=== PATIENT | male | born 1945 | race Caucasian/White ===

== ENCOUNTER → 2020-03-17 | Outpatient (CLI) | payer OTHER ==
[~2020-03-17] VITALS: Ht 182.9 cm; Wt 71.7 kg
[~2020-03-17] MED LIST: AMIODARONE HCL100 MG PO; CALCIUM + D3 E1 EACH PO; LIPITOR40 MG PO; LISINOPRIL10 MG PO; MAGNESIUM250 M1 PO; MELOXICAM7.5 MG PO; POTASSIUM20 PO
--- NOTE | ~2020-03-17 | HPC ---
[facility] [address] [place] [address] PAIN MANAGEMENT CONSULTATION Name: DALY CHAN Room #: [facility].#: [id number] Admission: 03/17/20 Attend Phys: Bran Prater MD Discharge: Date of : 47 Report #: [id number] CC: Danilo Prater DATE OF SERVICE: 03/17/2020 CHIEF COMPLAINT: Lumbosacral pain. There is some radiation into the mid back and increasing lumbar pain with prolonged standing. I am seeing the patient. Dr. 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 Chan. He has back pain that has been progressively worsening over the last 3 months. He began experiencing some symptoms in the fall. During the inactive winter months, he was a bit better. He was also undergoing some treatments for atrial fibrillation and had an ablation at [facility]. He is now off of all blood thinners and doing well. As he began becoming more active in spring, doing outdoor activities, he started to have pain. He was able to move fine, doing some yard work and other general activities, but when he sat down, the pain would become severe. Prolonged sitting dramatically increased pain to the level of 8-9/10 and he describes as a constant, shooting, gnawing, aching sensation. Occasionally, there is some radiation into the leg, but much of it radiates up the back and may be associated with muscle tension that develops as his back pain worsens. He ultimately underwent an MRI. It showed degenerative changes expected for age. Specifically, there was mild dextrocurvature of the lumbar spine. Minimal grade 1 retrolisthesis of L2 on L3 and a grade 1 anterolisthesis of L5 on S1 were noted. 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 No acute findings were found. No compression fracture or deformity and although there are degenerative changes at several of the disks, there was not a significant spinal narrowing or spinal stenosis at any level. The anterolisthesis at L5 on S1 did create moderate to severe neural foraminal narrowing bilaterally, right worse than left. Facet arthropathy consistent with age is noted also across the lumbosacral segment. CURRENT MEDICATIONS: Gabapentin, nitroglycerin, zolpidem, amiodarone, atorvastatin, lisinopril, potassium, meloxicam, magnesium and calcium carbonate. ALLERGIES: None. PAST MEDICAL HISTORY: Significant for atrial fibrillation, treated with ablation in the winter of 2018. He has some osteoarthritis. PAST SURGICAL HISTORY: Appendectomy, cholecystectomy and he had shoulder surgery. 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 He denies use of tobacco. Denies use of alcohol. Impacted pain score is really quite high, 52/70, suggests significant impacts, particularly in walking ability 10/10 and sleeps 6/10. General activity is 8/10. Pain interferes with many of his enjoyable activities. PHYSICAL EXAMINATION: GENERAL: He is a very slender, fit-appearing 74-year-old, 6 feet tall, 158 pounds, BMI is 21.4. VITAL SIGNS: Blood pressure 130/73, heart rate 87, respirations 20, O2 sat 98. CHEST: Clear to auscultation. CARDIAC: Rhythm regular. I could not appreciate a murmur. MUSCULOSKELETAL: Examination of the spine reveals what seems to be fairly normal alignment. There are no scars. Excellent range of motion in flexion, extension, [id number] rotation and lateral tilt without significant exacerbation of lumbosacral pain. There is some localized tenderness across the lumbosacral segment; however, at the level of L5-S1 in the midline. Straight leg raising is performed bilaterally in both sitting and supine position without exacerbation of pain. Strength is normal. Sensation is normal. Deep tendon reflexes are 1+ at knees and ankles. IMPRESSION: Lumbar spondylosis. He has some changes associated with the L5-S1 anterolisthesis. The radicular symptoms are mild. It would be difficult to focus on a single pain generator. I think an Epidural steroid injection would be an excellent initial treatment. We will see if this provides any significant lasting relief. Potential risks and benefits were reviewed in some detail and he would like to proceed. PROCEDURE: L4-L5 epidural under fluoroscopic guidance. PROCEDURE NOTE: After both written and informed consent to include risk of spinal cord damage, increased pain, weakness and dural puncture, the patient was taken to the fluoroscopy suite, placed in the prone position. After sterile prep and drape, a skin wheal with lidocaine was raised. A 22-gauge epidural Tuohy needle was inserted in the midline at L4-L5 with good loss to resistance. Negative aspiration for cerebrospinal fluid or blood was noted. Then 1 mL of Omnipaque under biplanar fluoroscopy showed good spread within the epidural space. This was followed with 80 mg of triamcinolone plus 1 mL of 1.5% preservative-free Xylocaine, 0.5 mL Xylocaine was then injected to flush the needle; it was removed. The patient was monitored for an appropriate period of time and discharged in good and stable condition. Followup visit planned in 1 month. No medications were ordered. By: [id number] Bran Prater MD /nt
[2020-03-17 12:49] VITALS: BP 130/73
--- NOTE | 2020-03-17 12:55 | NUR ---
Pain Clinic Assessment: 1. History of Osteoarthritis: BACK History of Rheumatoid Arthritis: 2. Height: 6 ft. in. 182.9 cm. Weight: 158.0 lb. oz. 71.668 kg. Patient's BMI: 21.4 3. Vital Signs: BP: 130/73 Pulse: 87 Resp: 20 Temp: 02 Sat: 98 ECG Mon: 4. Pain Intensity: 8-10 5. Fall Risk: Dizziness: N Needs help standing or walking: N Fallen in the last 3 months: N Fall risk comments: 6. Patient on Blood Thinner: None 7. History of Hypertension: Y 8. Opioid Therapy greater than 6 weeks: N Opiate Contract Signed: 9. Risk Assessment Tool Provided: 0-LOW RISK 10. Functional Assessment Tool: 11. Recreational Drug Use: Never Drug Type: Tobacco Use: Never Smoker Tobacco Type: Amount or Packs/day: How Many Years: Alcohol Use: No Frequency: Quant:
== END | disposition home or self-care (01) ==
LOC: PAIN 06:44
PROVIDERS: ATTEND Anesthesiology Pain Medicine
DX: M54.5 Low back pain (principal); M47.26 Other spondylosis with radiculopathy, lumbar region; M43.17 Spondylolisthesis, lumbosacral region; I48.91 Unspecified atrial fibrillation; M19.90 Unspecified osteoarthritis, unspecified site; Z98.890 Other specified postprocedural states; Z79.899 Other long term (current) drug therapy; Z90.49 Acquired absence of other specified parts of digestive tract; Z79.01 Long term (current) use of anticoagulants

== ENCOUNTER → 2020-04-07 | Outpatient (CLI) | payer OTHER ==
[~2020-04-07] VITALS: Ht 182.9 cm; Wt 71.7 kg
[~2020-04-07] MED LIST changes: +MYSOLINE50 MG PO
[2020-04-07 10:07] VITALS: BP 108/72
--- NOTE | 2020-04-07 10:23 | NUR ---
Pain Clinic Assessment: 1. History of Osteoarthritis: BACK History of Rheumatoid Arthritis: 2. Height: 6 ft. 0 in. 182.9 cm. Weight: 158.0 lb. oz. 71.668 kg. Patient's BMI: 21.4 3. Vital Signs: BP: 108/72 Pulse: 67 Resp: 14 Temp: 02 Sat: 100 ECG Mon: 4. Pain Intensity: 8 5. Fall Risk: Dizziness: N Needs help standing or walking: N Fallen in the last 3 months: N Fall risk comments: 6. Patient on Blood Thinner: None 7. History of Hypertension: Y 8. Opioid Therapy greater than 6 weeks: N Opiate Contract Signed: 9. Risk Assessment Tool Provided: 0-LOW RISK 10. Functional Assessment Tool: 11. Recreational Drug Use: Never Drug Type: Tobacco Use: Never Smoker Tobacco Type: Amount or Packs/day: How Many Years: Alcohol Use: No Frequency: Quant:
== END | disposition home or self-care (01) ==
LOC: PAIN 06:51
PROVIDERS: ATTEND Anesthesiology Pain Medicine
DX: M47.816 Spondylosis without myelopathy or radiculopathy, lumbar region (principal); I10 Essential (primary) hypertension; G89.29 Other chronic pain; Z98.890 Other specified postprocedural states; Z79.899 Other long term (current) drug therapy

== ENCOUNTER → 2020-05-05 | Outpatient (CLI) | payer OTHER ==
[~2020-05-05] VITALS: Ht 182.9 cm; Wt 70.4 kg
[~2020-05-05] MED LIST changes: +LEXAPRO 10 MG T10 M1 PO; +PAIN RELIEF325 MG PO
[2020-05-05 14:12] VITALS: BP 115/70
--- NOTE | 2020-05-05 14:31 | NUR ---
Pain Clinic Assessment: 1. History of Osteoarthritis: BACK History of Rheumatoid Arthritis: 2. Height: 6 ft. 0 in. 182.9 cm. Weight: 155.2 lb. oz. 70.398 kg. Patient's BMI: 21.0 3. Vital Signs: BP: 115/70 Pulse: 73 Resp: 16 Temp: 02 Sat: 97 ECG Mon: 4. Pain Intensity: 8 5. Fall Risk: Dizziness: N Needs help standing or walking: N Fallen in the last 3 months: N Fall risk comments: 6. Patient on Blood Thinner: None 7. History of Hypertension: Y 8. Opioid Therapy greater than 6 weeks: N Opiate Contract Signed: 9. Risk Assessment Tool Provided: 0-LOW RISK 10. Functional Assessment Tool: 11. Recreational Drug Use: Never Drug Type: Tobacco Use: Never Smoker Tobacco Type: Amount or Packs/day: How Many Years: Alcohol Use: No Frequency: Quant:
== END | disposition home or self-care (01) ==
LOC: PAIN 06:49
PROVIDERS: ATTEND Anesthesiology Pain Medicine
DX: M47.816 Spondylosis without myelopathy or radiculopathy, lumbar region (principal); M54.5 Low back pain; G89.29 Other chronic pain; I10 Essential (primary) hypertension; Z98.890 Other specified postprocedural states; Z79.899 Other long term (current) drug therapy; Z88.8 Allergy status to other drugs, medicaments and biological substances

== ENCOUNTER → 2020-05-16 | Outpatient (CLI) | payer OTHER ==
[~2020-05-16] VITALS: Ht 182.9 cm; Wt 71.9 kg
[~2020-05-16] MED LIST changes: +CHILDREN'S ASPI81 M1 PO
[2020-05-16 08:53] VITALS: BP 121/67
--- NOTE | 2020-05-16 09:01 | NUR ---
Pain Clinic Assessment: 1. History of Osteoarthritis: BACK History of Rheumatoid Arthritis: 2. Height: 6 ft. 0 in. 182.9 cm. Weight: 158.6 lb. oz. 71.940 kg. Patient's BMI: 21.5 3. Vital Signs: BP: 121/67 Pulse: 85 Resp: 18 Temp: 02 Sat: 97 ECG Mon: 4. Pain Intensity: 7 5. Fall Risk: Dizziness: N Needs help standing or walking: N Fallen in the last 3 months: N Fall risk comments: 6. Patient on Blood Thinner: None 7. History of Hypertension: Y 8. Opioid Therapy greater than 6 weeks: N Opiate Contract Signed: 9. Risk Assessment Tool Provided: 0-LOW RISK 10. Functional Assessment Tool: 11. Recreational Drug Use: Never Drug Type: Tobacco Use: Never Smoker Tobacco Type: Amount or Packs/day: How Many Years: Alcohol Use: No Frequency: Quant:
== END | disposition home or self-care (01) ==
LOC: PAIN 06:54
PROVIDERS: ATTEND Anesthesiology Pain Medicine
DX: M47.816 Spondylosis without myelopathy or radiculopathy, lumbar region (principal); Z98.890 Other specified postprocedural states; Z79.899 Other long term (current) drug therapy

== ENCOUNTER → 2020-06-13 | Outpatient (CLI) | payer OTHER ==
[~2020-06-13] VITALS: Ht 182.9 cm; Wt 70.8 kg
[~2020-06-13] MED LIST changes: +DIAZEPAM 5 MG5 M1 PO; +MOBIC7.5 MG PO
[2020-06-13 12:31] VITALS: BP 116/72
--- NOTE | 2020-06-13 12:39 | NUR ---
Pain Clinic Assessment: 1. History of Osteoarthritis: BACK History of Rheumatoid Arthritis: 2. Height: 6 ft. 0 in. 182.9 cm. Weight: 156.0 lb. oz. 70.761 kg. Patient's BMI: 21.2 3. Vital Signs: BP: 116/72 Pulse: 58 Resp: 18 Temp: 02 Sat: 96 ECG Mon: 4. Pain Intensity: 7 5. Fall Risk: Dizziness: N Needs help standing or walking: N Fallen in the last 3 months: N Fall risk comments: 6. Patient on Blood Thinner: None 7. History of Hypertension: Y 8. Opioid Therapy greater than 6 weeks: N Opiate Contract Signed: 9. Risk Assessment Tool Provided: 0-LOW RISK 10. Functional Assessment Tool: 11. Recreational Drug Use: Never Drug Type: Tobacco Use: Never Smoker Tobacco Type: Amount or Packs/day: How Many Years: Alcohol Use: No Frequency: Quant:
== END ==
LOC: PAIN 06:55
PROVIDERS: ATTEND Anesthesiology Pain Medicine
DX: M47.816 Spondylosis without myelopathy or radiculopathy, lumbar region (principal); Z79.899 Other long term (current) drug therapy

== ENCOUNTER → 2020-10-24 | Outpatient (CLI) | payer OTHER ==
[~2020-10-24] VITALS: Ht 182.9 cm; Wt 73.2 kg
[2020-10-24 09:12] VITALS: BP 107/70
--- NOTE | 2020-10-24 09:21 | NUR ---
Pain Clinic Assessment: 1. History of Osteoarthritis: BACK History of Rheumatoid Arthritis: 2. Height: 6 ft. 0 in. 182.9 cm. Weight: 161.4 lb. oz. 73.211 kg. Patient's BMI: 21.9 3. Vital Signs: BP: 107/70 Pulse: 57 Resp: 14 Temp: 02 Sat: 95 ECG Mon: 4. Pain Intensity: 6 5. Fall Risk: Dizziness: N Needs help standing or walking: N Fallen in the last 3 months: N Fall risk comments: 6. Patient on Blood Thinner: None 7. History of Hypertension: Y 8. Opioid Therapy greater than 6 weeks: N Opiate Contract Signed: 9. Risk Assessment Tool Provided: 0-LOW RISK 10. Functional Assessment Tool: 11. Recreational Drug Use: Never Drug Type: Tobacco Use: Never Smoker Tobacco Type: Amount or Packs/day: How Many Years: Alcohol Use: No Frequency: Quant:
== END ==
LOC: PAIN 07:13
PROVIDERS: ATTEND Anesthesiology Pain Medicine
DX: M47.817 Spondylosis without myelopathy or radiculopathy, lumbosacral region (principal); I10 Essential (primary) hypertension; Z79.891 Long term (current) use of opiate analgesic; Z79.899 Other long term (current) drug therapy

== ENCOUNTER → 2020-11-07 | Outpatient (CLI) | payer OTHER ==
[~2020-11-07] VITALS: Ht 182.9 cm; Wt 73.3 kg
[2020-11-07 14:02] VITALS: BP 106/66
--- NOTE | 2020-11-07 14:19 | NUR ---
Pain Clinic Assessment: 1. History of Osteoarthritis: BACK History of Rheumatoid Arthritis: 2. Height: 6 ft. 0 in. 182.9 cm. Weight: 161.6 lb. oz. 73.301 kg. Patient's BMI: 21.9 3. Vital Signs: BP: 106/66 Pulse: 62 Resp: 14 Temp: 02 Sat: 96 ECG Mon: 4. Pain Intensity: 6 5. Fall Risk: Dizziness: N Needs help standing or walking: N Fallen in the last 3 months: N Fall risk comments: 6. Patient on Blood Thinner: None 7. History of Hypertension: Y 8. Opioid Therapy greater than 6 weeks: N Opiate Contract Signed: 9. Risk Assessment Tool Provided: 0-LOW RISK 10. Functional Assessment Tool: 11. Recreational Drug Use: Never Drug Type: Tobacco Use: Never Smoker Tobacco Type: Amount or Packs/day: How Many Years: Alcohol Use: No Frequency: Quant:
== END | disposition home or self-care (01) ==
LOC: PAIN 11:04
PROVIDERS: ATTEND Anesthesiology Pain Medicine
DX: M47.816 Spondylosis without myelopathy or radiculopathy, lumbar region (principal); M54.5 Low back pain; G89.29 Other chronic pain; Z98.890 Other specified postprocedural states; Z79.899 Other long term (current) drug therapy; Z79.82 Long term (current) use of aspirin